=== PATIENT | male | born 1955 | race Caucasian/White ===

== ENCOUNTER → 2023-07-20 13:00 | Outpatient (BNVA) | payer MEDICARE, SELFPAY | PROVIDERS: PCP Internal Medicine; Visit Provider Physician Assistant ==

== ENCOUNTER 2023-08-17 09:38 | Outpatient (AMB) | payer MEDICARE, SELFPAY ==
--- NOTE | 2023-08-17 08:46 | A.OFFVIS_ITS ---
Intake VS Expanded 08/17/23 09:07 Height 6 ft Weight 240 lb BMI 32.5 Intake Visit Reasons: TV MWL BMI 32.4 [employer]illing [employer] Production Required: No Allergies No Known Allergies Allergy (Verified 07/20/23 13:20) Medication List - Last Reconciled 08/17/23 by NILAM Conway finasteride 5 mg PO DAILY losartan 12.5 mg PO DAILY metformin mg PO tamsulosin 0.4 mg PO DAILY triamcinolone acetonide 0.1% appl topical HPI HPI Comments History of Present Illness Details Pt is here to start the [facility] Weight Management medical weight loss program. He heard about our program from a friend. His goal is to lose weight and achieve a healthy lifestyle as well as to improve, if not resolve, obesity related medical conditions, including DM, HTN. He reports first being concerned about his weight about 7 years ago, highest weight to date was 245. Current weight is 240 pounds with a BMI of 32.5. He has tried multiple methods of weight loss including fad diets without permanent results. He lives with his . 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 Scheduled to go away from end to end of September to [facility] and [employer]. He wakes at:?6 am, and goes to bed at?10 pm. Dinner is at 6-8 pm. Breakfast: coffee, banana, fiber wafer, AM snack: 2 egg omelet w cheese and mushrooms, low carb peter w melted cheese, atkins bar Lunch: salad, chicken salad, peter bread pizza, fruit PM snack: cheese or nuts Dinner: grilled chicken or fish, vegetables, salad, restaurant food After dinner: SF popsicle, SF yogurt Other snacks: none Liquids: 64-96 oz water, no soda or juice Alcohol/marijuana/tobacco intake: none Exercise: 30 min weight calculator weekly 4 days fitness machines, 40 minutes 3 days treadmill, 180 calories per sessi on, speed 3, incline 3.5 [facility] Medical History Hx of bladder cancer Hx of [place] cell carcinoma History of deviated nasal septum Hx of pyloric stenosis Surgical History Hx of carpal tunnel repair Hx of lymph node excision History of nasal surgery Hx of hernia repair Hx of tonsillectomy Family History Mother No problems noted. Father No problems noted. Daughter Autism Son Autism Social History Alcohol intake: never Patient Tobacco Use Status: Never used Tobacco Assessment & Plan Assessment & Plan (1) Obesity (BMI 30-39.9): Code(s): E66.9 - Obesity, unspecified Plan: This is a?68 yo male who will start our MWL program to prepare for bariatric surgery.? [place] from the end of [place] to the end of September. He will start pieces of the meal plan as listed below as he is able although we will reconnect upon his return to discuss his goals and how to proceed. ? Adequate sleep of 7-8 hours per night discussed, awakening at 6 am and going to bed around 10 pm ? Purchase body composition analyzer scale ([employer] recommended) and check weight weekly. The best time to do this is first thing in the morning after going to the bathroom. 1. Nutritional counseling: Be sure to careful read the number of scoops per shake Start with 2 Event[employer] Diagnosticsebrate Rebuild shakes ([facility] gift shop, [employer], [employer]), (1.5 scoops in 16 oz unsweetened almond milk) First shake at 7am-9am Second shake at 10am-12pm 2 Atkins protein bars First bar at 1pm-3pm. Dinner at 6pm (8 forks of protein and 8 forks of salad/vegetables). Meal to include lean meat (beef, fish, pork, turkey, chicken), cooked vegetables or a salad with olive oil and/or fruits (berries, pears, apples, kiwi). Avoid salt, b reads, potatoes, rice, pasta, desserts. Another bar at 8pm-10pm. Try to drink 64 oz of water daily and avoid soda and juices. ?2. Each shake would be drunk slowly, like coffee in a period of 2 hours. ?3. Cut each bar in 4 pieces and eat each piece in 30 min ?to make each bar last 2 hours. ?4. I emphasized the importance of measuring accurately the food portion and measure it carefully when serving the food on the plate ?5. The meal portions include 8 full-size forks of meat and 8 full-size forks of salad. You always eat the meat portion but you can replace up to half of the forks of salad/vegetables with rice, potatoes or pasta, or a fruit ?if you like. The less you do it the better weight loss will be. ?6. One full-size fork is what can be scooped on the fork without falling aside and not what can be bit with the fork. Use regular forks like those you find in a typical restaurant. ?7.? Please send me weight measurements as soon as possible and then once a week. Always include your diet and exercise plan. Alternatively come weekly at the office for weight checks and send me the measurements. ?8. Exercise counseling: Begin by watching a stretching for beginners video. Start slowly and begin to stretch your muscles. You should do this before and after each exercise session to prevent injury. Please continue your routine at [facility] gym near your home. Start elliptical with a resistance of 2. Increase resistance by 1 every 3 min to your most comfortable resistance with a max resistance of 8. Reduce the resistance by 1 every 3 minutes back down to 2 and repeat cycles for 300 calories. Alternatively, start treadmill with a speed of 3.0 and incline of 0, increasing incline by 1 every 3 minutes to the highest comfortable level (max 6 for now) then decrease in the same fashion. Repeat process to a goal of 300 calories. Goal of 2000 calories burned or more weekly. You can use your treadmill at home during the days you are not at the gym. You may also consider use of the stationary bike. The easiest would be to chose the fat-burn or interval training program on the machine and do this until you reach the 300 calorie goal. Alternatively, you can manually adjust the resistance in a similar fashion as mentioned above, (resistance of 2-8 with a goal speed of 12 mph). Tracking calories is essential. 9. Alternatively start walking outside daily, tracking calories with a goal of 300 calories per day, daily. You can download the ewa logolineup which can track your time, distance and calories while walking outside. You press start in the ewa when you start and then stop when you are finished. 10.? It is important to closely monitor your blood sugars and blood pressure as these tend to improve quickly and you may not even need your medications in the future. Please contact me with any questions. 11. Please check your weight weekly on the same day, as possible 12. Discussed and answered all questions regarding?obtained consent to participate in the [facility] [facility]?Registry. 13. Please follow the diet plan exactly, without any change. If you do not like something about the plan or you feel hungry, you need to communicate with me so I can help you revise the plan. You should not change the plan yourself. Text me at [phone] 14. Goal is to lose at least 8-10 pounds in the first month Patient is morbidly obese and is not considered stable at this time.?I spent a total of 70 minutes reviewing/updating records, examining the patient and counseling the patient on weight management as detailed above. Telehealth Telehealth Location of provider rendering services: practice address Location of patient: address on file Patient Identification confirmed using: Name, : Yes Telehealth method: voice only Patient verbally consented to treatment: Yes Patient verbally consented to billing insurance company: Yes Patient informed of any privacy concerns related to visit: Yes Minutes spent on Phone/Video with Pt.: 50 Coding Level of Care Code Tele Est Pt Level 5 (02229) Diagnoses Obesity (BMI 30-39.9) E66.9 Time Spent (min) 70
[2023-08-17 09:07] VITALS: BMI 32.5
== END 2023-08-17 11:54 | disposition home or self-care (01) ==
PROVIDERS: PCP Internal Medicine; Visit Provider Physician Assistant Surgical
DX: E66.9 Obesity, unspecified (principal); Z68.35 Body mass index [BMI] 35.0-35.9, adult
CPT/HCPCS: 99443

== ENCOUNTER → 2023-08-17 09:38 | Outpatient (BNVA) | payer MEDICARE, SELFPAY | PROVIDERS: PCP Internal Medicine; Visit Provider Physician Assistant Surgical ==

== ENCOUNTER 2023-10-18 09:45 | Outpatient (AMB) | payer MEDICARE, SELFPAY ==
[2023-10-18 08:42] VITALS: BMI 29.5
--- NOTE | 2023-10-18 08:42 | MHC.OFFVISWM ---
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 Initiated the medical weight loss pathway on 08/17/2023 with a weight of 240 lb and a BMI of 32.5. Today's weight is 217.8 with a BMI of 29.5. He has lost a total of 22.2 lb, or 9.2% total body weight loss. Metamucil wafer daily and senna 2 daily, w BM q 3 days He states he is doing well. [facility] He states he is not following the meal plan exactly. Doing shakes at BF and L, not following the exact amount of forks at lunch. Minimal snacking during the day (tomato and cheese). He is using the atkins bars sometimes. He feels as though he is hungry during the day but not following the plan exactly. He was accidently doing 1 scoop in 8 oz milk 2 x per day. meal plan: 2 Celebrate Rebuild shakes ([facility] gift shop, [employer], [employer]), (1.5 scoops in 16 oz unsweetened almond milk) First shake at 7am-9am Second shake at 10am-12pm 2 Atkins protein bars First bar at 1pm-3pm. Dinner at 6pm (8 forks of protein and 8 forks of salad/vegetables). Another bar at 8pm-10pm. Drinking 24-36 oz exercise plan: 1 x week head athletic trainer/strength coach session. 3 x week weight/circuit treadmill 30 min 3 x per week at gym, 200 calories treadmill 30-45 min 3 x week at home, 200 calories PFSH Medical History Hx of bladder cancer Hx of [place] cell carcinoma History of deviated nasal septum Hx of pyloric stenosis Surgical History Hx of carpal tunnel repair Hx of lymph node excision History of nasal surgery Hx of hernia repair Hx of tonsillectomy Family History Mother No problems noted. Father No problems noted. Daughter Autism Son Autism Social History Alcohol intake: never Patient Tobacco Use Status: Never used Tobacco Assessment & Plan Assessment & Plan (1) Obesity (BMI 30-39.9): Code(s): E66.9 - Obesity, unspecified Plan: Patient was not following the meal plan exactly. He had decrease the amount of scoops of protein powder and had not been following the fork fulls. Additionally, he was not doing the bars as instructed however he has still lost approximately 22.2 lb. After extensive discussion he will follow the meal plan exactly as listed below: 2 Celebrate Rebuild shakes ([facility] gift shop, [employer], [employer]), First shake (1.5 scoops in 12 oz unsweetened almond milk) at 7am-9am Second shake (1 scoop in 12 oz unsweetened almond milk) at 10am-12pm 2 Atkins protein bars First bar at 1pm-3pm. Dinner at 6pm (8 forks of protein and 8 forks of salad/vegetables). Another bar at 8pm-10pm. He will contact me in 5-7 days to let me know what has worked and what has not worked. He has had admitted snacking in between but had not follow the meal plan. He will continue the exercise plan consistently so as to identify what aspect of the meal plan is or is not working for him. We will arrange for a follow-up phone call in approximately 4 weeks. Telehealth Telehealth Location of provider rendering services: practice address Location of patient: address on file Patient Identification confirmed using: Name, : Yes Telehealth method: voice only Patient verbally consented to treatment: Yes Patient verbally consented to billing insurance company: Yes Patient informed of any privacy concerns related to visit: Yes Minutes spent on Phone/Video with Pt.: 30 Coding Level of Care Code Tele Est Pt Level 3 (43959) Diagnoses Obesity (BMI 30-39.9) E66.9 Time Spent (min) 35
== END 2023-10-18 09:46 | disposition home or self-care (01) ==
LOC: HO.HBS 09:45
PROVIDERS: PCP Internal Medicine; Visit Provider Physician Assistant Surgical
DX: E66.9 Obesity, unspecified (principal); Z68.32 Body mass index [BMI] 32.0-32.9, adult
CPT/HCPCS: 99443

== ENCOUNTER → 2023-10-18 09:45 | Outpatient (BNVA) | payer MEDICARE, SELFPAY | PROVIDERS: PCP Internal Medicine; Visit Provider Physician Assistant Surgical | DX: E66.9 Obesity, unspecified (principal) ==

== ENCOUNTER 2023-11-23 09:34 | Outpatient (AMB) | payer MEDICARE, SELFPAY ==
[2023-11-23 09:30] VITALS: BMI 29.3
--- NOTE | 2023-11-23 09:30 | MHC.OFFVISWM ---
VS Expanded 11/23/23 09:30 Height 6 ft Weight 216 lb BMI 29.3 Intake Visit Reasons: (TV) F/U MWL Allergies No Known Allergies Allergy (Verified 07/20/23 13:20) HPI Comments Details: Patient is a pleasant 68-year-old male who returns to the office today in follow-up. Initiated the medical weight loss pathway on 08/17/2023 with a weight of 240 lb and a BMI of 32.5. Today's weight is 216.2 with a BMI of 29.3. He has lost a total of 23.8 lb, or 9.9% total body weight loss. Metamucil wafer daily and senna 2 daily, w BM q 3 days He states he is doing well. Reports goal is under 200 pounds. meal plan: 2 Celebrate Rebuild shakes ([facility] gift shop, [employer], [employer]), First shake (1.5 scoops in 12 oz unsweetened almond milk) at 7am-9am Second shake (1 scoop in 12 oz unsweetened almond milk) at 10am-12pm 2 Atkins protein bars First bar at 1pm-3pm. Dinner at 6pm (8 forks of protein and 8 forks of salad/vegetables). Another bar at 8pm-10pm. Drinking 60-80 oz exercise plan: 1 x week ehr trainer session. 3 x week weight/circuit treadmill 30 min 3 x per week at gym, 200 calories treadmill 30-45 min 3 x week at home, 200 calories PFSH Medical History Hx of bladder cancer Hx of [place] cell carcinoma History of deviated nasal septum Hx of pyloric stenosis Surgical History Hx of carpal tunnel repair Hx of lymph node excision History of nasal surgery Hx of hernia repair Hx of tonsillectomy Family History Mother No problems noted. Father No problems noted. Daughter Autism Son Autism Social History Alcohol intake: never Patient Tobacco Use Status: Never used Tobacco Telehealth Telehealth Telehealth Platform: Telephone Location of provider rendering services: practice address Location of patient: address on file Patient Identification confirmed using: Name, : Yes Telehealth method: voice only Patient verbally consented to treatment: Yes Patient verbally consented to billing insurance company: Yes Patient informed of any privacy concerns related to visit: Yes Minutes spent on Phone/Video with Pt.: 25 Assessment & Plan Assessment & Plan (1) Overweight (BMI 25.0-29.9): Code(s): E66.3 - Overweight Category: Medical Plan: He will essentially keep the meal plan using 3 celebrate rebuild shakes with 1 scoop each and 8 oz of unsweetened almond milk, +/- 1 Atkins bar, keep the meal at 8 forks of protein and 8 forks of veggies. He will continue exercise as he is doing. Return to office 6 weeks.
== END 2023-11-23 10:11 | disposition home or self-care (01) ==
LOC: HO.HBS 09:34
PROVIDERS: PCP Internal Medicine; Visit Provider Physician Assistant Surgical
DX: E66.3 Overweight (principal); Z68.29 Body mass index [BMI] 29.0-29.9, adult
CPT/HCPCS: 99443

== ENCOUNTER → 2023-11-23 09:34 | Outpatient (BNVA) | payer MEDICARE, SELFPAY | PROVIDERS: PCP Internal Medicine; Visit Provider Physician Assistant Surgical ==

== ENCOUNTER 2024-01-24 09:49 | Outpatient (AMB) | payer MEDICARE, SELFPAY ==
[2024-01-24 09:03] VITALS: BMI 29.1
--- NOTE | 2024-01-24 09:03 | A.OFFVIS_ITS ---
VS Expanded 01/24/24 09:03 Height 6 ft Weight 214 lb 12.8 oz BMI 29.1 Intake Visit Reasons: (TV) F/U MWL Allergies No Known Allergies Allergy (Verified 07/20/23 13:20) Medication List - Last Reconciled 01/24/24 by NILAM Conway finasteride 5 mg PO DAILY losartan 12.5 mg PO DAILY metformin mg PO tamsulosin 0.4 mg PO DAILY triamcinolone acetonide 0.1% appl topical HPI Comments Details: Patient is a pleasant 68-year-old male who returns to the office today in follow-up. Initiated the medical weight loss pathway on 08/17/2023 with a weight of 240 lb and a BMI of 32.5. Today's weight is 214.8 with a BMI of 29.1. He has lost a total of 25.2 lb, or 10.5% total body weight loss. Metamucil wafer daily and senna 2 daily, w BM q 3 days He states he is doing well. Reports goal is under 200 pounds. He states that his weight has been stable for the last couple months. Reports struggling with maintaining the plan. He is having a shake and atkins bar in the morning. Another shake midday and a piece of cheese or low card/low tom peter bread, or tomatoes. Eating more than instructed for dinner meal plan: 3 Celebrate Rebuild shakes ([facility] gift shop, [employer], [employer]), First shake (1 scoops in 12 oz unsweetened almond milk) at 7am-9am Second shake (1 scoop in 12 oz unsweetened almond milk) at 10am-12pm third shake at 1pm-3pm. Dinner at 6pm (8 forks of protein and 8 forks of salad/vegetables). Another bar at 8pm-10pm. Drinking 60-80 oz exercise plan: 1 x week corporate sales trainer session. 3 x week weight/circuit treadmill 30 min 3 x per week at gym, 200 calories treadmill 30-45 min 3 x week at home, 200 calories PFSH Medical History Hx of bladder cancer Hx of [place] cell carcinoma History of deviated nasal septum Hx of pyloric stenosis Surgical History Hx of carpal tunnel repair Hx of lymph node excision History of nasal surgery Hx of hernia repair Hx of tonsillectomy Family History Mother No problems noted. Father No problems noted. Daughter Autism Son Autism Social History Alcohol intake: never Patient Tobacco Use Status: Never used Tobacco Telehealth Telehealth Telehealth Platform: Telephone Location of provider rendering services: practice address Location of patient: address on file Patient Identification confirmed using: Name, : Yes Telehealth method: voice only Patient verbally consented to treatment: Yes Patient verbally consented to billing insurance company: Yes Patient informed of any privacy concerns related to visit: Yes Minutes spent on Phone/Video with Pt.: 20 Assessment & Plan Assessment & Plan (1) Overweight (BMI 25.0-29.9): Code(s): E66.3 - Overweight Category: Medical Plan: Patient has made excellent success. He has a very good working knowledge of appropriate choices. He is trying to stick to the meal plan as best as he can. We will adjust it 1 last time as he feels as though he is never quite full. This has caused increased snacking. Recommended meal plan is celebrate rebuild, 2 scoops in the morning followed by 2 meals during the day with 9 forks of protein and 10 forks of salad or vegetables. Continue exercise as he is doing although attempt to increase calories burned to 400 per day, 5 days a week. He may contact us in the future if he wishes. He may e-mail me if he has any further questions.
== END 2024-01-24 10:54 | disposition home or self-care (01) ==
LOC: HO.HBS 09:49
PROVIDERS: PCP Internal Medicine; Visit Provider Physician Assistant Surgical
DX: E66.3 Overweight (principal); Z68.29 Body mass index [BMI] 29.0-29.9, adult
CPT/HCPCS: 99442

== ENCOUNTER → 2024-01-24 09:49 | Outpatient (BNVA) | payer MEDICARE, SELFPAY | PROVIDERS: PCP Internal Medicine; Visit Provider Physician Assistant Surgical ==